=== PATIENT | male | born 1940 | race Caucasian/White ===

== ENCOUNTER 2020-03-11 07:07 | Observation (INO) ==
[2020-03-11] MEDS ORDERED: Aspirin 81 MG TAB.CHEW PO ONE (07:10)
[2020-03-11 07:45] LABS: INR 1.3; Prothrombin Time 14.8 Seconds (9.4-12.1)
[2020-03-11] MEDS ORDERED: Isovue-370 500 ML BOTTLE IVP ONE (07:57)
[2020-03-11 08:01] LABS: BUN/Creatinine Ratio 16 (6-26); Blood Urea Nitrogen 21 mg/dL (8-23); Calcium 9.2 mg/dL (8.6-10.3); Carbon Dioxide 24 mEq/L (23-29); Chloride 104 mEq/L (98-107); Glucose 121 mg/dL (70-105); Osmolality,Calculated 288 (280-300); Potassium 4.2 mEq/L (3.5-5.1); Sodium 137 mEq/L (136-145); eGFR For African Americans > 60 (> 60); eGFR For Non-African Americans 52 (> 60)
[2020-03-11 08:02] LABS: Troponin I < 0.03 ng/mL (< 0.04)
[2020-03-11 08:13] LABS: Basophils % 0.6 %; Eosinophils # 0.2 K/mcL (0.0-0.6); Eosinophils % 2.4 %; Hematocrit 40.9 % (37.5-50.1); Hemoglobin 13.4 g/dL (12.9-16.9); Immature Granulocytes % 0.3 % (0-4); Lymphocytes # 1.3 K/mcL (0.6-4.6); Lymphocytes % 21.2 %; Mean Corpuscular HGB Conc 32.8 g/dL (31.6-35.5); Mean Corpuscular Hemoglobin 33.3 pg (28.0-33.3); Mean Corpuscular Volume 101.7 fL (83.0-100.0); Mean Platelet Volume 10.9 fL (9.4-12.4); Monocytes # 0.6 K/mcL (0.0-1.3); Monocytes % 9.3 %; Neutrophils # 4.2 K/mcL (1.6-8.9); Platelet Count 146 K/mcL (140-400); Red Blood Count 4.02 M/mcL (4.19-5.50); Red Cell Distribution Width 12.1 % (11.5-14.5); Segmented Neutrophils % 66.2 %; White Blood Count 6.3 K/mcL (4.3-11.1)
[2020-03-11] MEDS ORDERED: Ondansetron 4 MG/2 ML VIAL IVP PRN (10:52)
[2020-03-11] MEDS ORDERED: Naloxone 0.4 MG/ML INJ IVP PRN (10:52)
[2020-03-11] MEDS: Metoprolol XL (24 HR) Succ 25 MG TAB.ER.24H PO SCH (16:17)
[2020-03-11] MEDS: Magnesium Oxide 400 MG TABLET PO SCH (16:17)
[2020-03-11] MEDS: Spironolactone 25 MG TABLET PO SCH (16:17)
[2020-03-11] MEDS: Ringers Solution, Lactated 1,000 ML IVC SCH (16:18)
[2020-03-11] MEDS ORDERED: DOFETILIDE 500 MCG PO SCH (21:00)
[2020-03-11] MEDS: Apixaban 5 MG TABLET PO SCH (21:20)
[2020-03-11 22:50] LABS: Bilirubin,Urine Negative (Negative); Blood,Urine Negative (Negative); Clarity,Urine Cloudy (Clear); Color,Urine Yellow (Yellow); Glucose,Urine (UA) Normal (Normal); Ketones,Urine Negative (Negative); Leukocyte Esterase,Urine Small (Negative); Nitrite,Urine Negative (Negative); PH,Urine 6.5 pH Units (5.0-8.0); Protein,Urine Negative (Neg-Trace); Specific Gravity,Urine > 1.030 (1.010-1.025); Urobilinogen,Urine Normal (Normal)
[2020-03-11 22:54] LABS: Hyaline Casts,Urine None Seen per lpf (None-Few); RBC,Urine 0-3 per hpf (0-3); Squamous Epithelial Cell,Urine Few per lpf (None-Few); WBC,Urine 15-30 per hpf (0-3)
[2020-03-11 23:13] LABS: Bacteria,Urine Moderate per hpf (None-Few)
[2020-03-12 03:11] LABS: Basophils % 0.5 %; Eosinophils # 0.1 K/mcL (0.0-0.6); Eosinophils % 1.8 %; Hematocrit 39.7 % (37.5-50.1); Hemoglobin 13.1 g/dL (12.9-16.9); Immature Granulocytes % 0.3 % (0-4); Lymphocytes # 1.7 K/mcL (0.6-4.6); Lymphocytes % 22.6 %; Mean Corpuscular Hemoglobin 33.8 pg (28.0-33.3); Mean Corpuscular Volume 102.3 fL (83.0-100.0); Mean Platelet Volume 10.8 fL (9.4-12.4); Monocytes # 0.7 K/mcL (0.0-1.3); Neutrophils # 5.1 K/mcL (1.6-8.9); Platelet Count 155 K/mcL (140-400); Red Blood Count 3.88 M/mcL (4.19-5.50); Red Cell Distribution Width 12.4 % (11.5-14.5); Segmented Neutrophils % 65.8 %; White Blood Count 7.7 K/mcL (4.3-11.1)
[2020-03-12 03:24] LABS: INR 1.4; Prothrombin Time 15.4 Seconds (9.4-12.1)
[2020-03-12 03:36] LABS: Alanine Aminotransferase 23 Units/L (7-52); Albumin 3.7 g/dL (3.5-5.7); Albumin/Globulin Ratio 1.8 (1.1-2.2); Alkaline Phosphatase 95 Units/L (34-104); Aspartate Amino Transferase 17 Units/L (13-39); BUN/Creatinine Ratio 15 (6-26); Bilirubin,Total 0.7 mg/dL (0.3-1.0); Blood Urea Nitrogen 18 mg/dL (8-23); Calcium 8.8 mg/dL (8.6-10.3); Carbon Dioxide 23 mEq/L (23-29); Chloride 107 mEq/L (98-107); Chol/HDL Ratio 3.1 (0-4.9); Cholesterol 113 mg/dL (< 200); Globulin 2.1 g/dL (2.4-3.5); Glucose 79 mg/dL (70-105); HDL Cholesterol 36 mg/dL (40-59); LDL Cholesterol,Calculated 67 mg/dL (0-99); Osmolality,Calculated 287 (280-300); Phosphorous 3.3 mg/dL (2.7-4.5); Potassium 4.3 mEq/L (3.5-5.1); Sodium 138 mEq/L (136-145); Total Protein 5.8 g/dL (6.4-8.9); Triglycerides 49 mg/dL (< 150); eGFR For African Americans > 60 (> 60); eGFR For Non-African Americans 58 (> 60)
[2020-03-12] MEDS: Ringers Solution, Lactated 1,000 ML IVC SCH (05:42)
[2020-03-12] MEDS ORDERED: Aspirin Enteric Coated 81 MG Tablet PO SCH (09:00)
[2020-03-12] MEDS: Apixaban 5 MG TABLET PO SCH ×2 (12:27→20:14)
[2020-03-12] MEDS: lisinopriL 5 MG TABLET PO SCH (12:27)
[2020-03-12] MEDS: Furosemide 20 MG TABLET PO SCH (12:27)
[2020-03-12] MEDS: *HR* Amiodarone 200 MG TABLET PO SCH (12:28)
[2020-03-12] MEDS: cefTRIAXone 1,000 MG in Water for inj. (sterile) 10 ML IVP SCH (12:32)
[2020-03-12] MEDS: Magnesium Oxide 400 MG TABLET PO SCH (17:50)
[2020-03-12] MEDS: Spironolactone 25 MG TABLET PO SCH (17:50)
[2020-03-12] MEDS: Metoprolol XL (24 HR) Succ 25 MG TAB.ER.24H PO SCH (17:51)
[2020-03-13 08:16] LABS: Basophils # 0.1 K/mcL (0.0-0.2); Basophils % 0.7 %; Eosinophils # 0.2 K/mcL (0.0-0.6); Eosinophils % 2.5 %; Hematocrit 42.9 % (37.5-50.1); Hemoglobin 14.1 g/dL (12.9-16.9); Immature Granulocytes % 0.3 % (0-4); Lymphocytes # 1.6 K/mcL (0.6-4.6); Lymphocytes % 22.3 %; Mean Corpuscular HGB Conc 32.9 g/dL (31.6-35.5); Mean Corpuscular Hemoglobin 33.3 pg (28.0-33.3); Mean Corpuscular Volume 101.2 fL (83.0-100.0); Mean Platelet Volume 10.6 fL (9.4-12.4); Monocytes # 0.6 K/mcL (0.0-1.3); Monocytes % 8.6 %; Neutrophils # 4.8 K/mcL (1.6-8.9); Platelet Count 171 K/mcL (140-400); Red Blood Count 4.24 M/mcL (4.19-5.50); Red Cell Distribution Width 12.4 % (11.5-14.5); Segmented Neutrophils % 65.6 %; White Blood Count 7.3 K/mcL (4.3-11.1)
[2020-03-13] MEDS: lisinopriL 5 MG TABLET PO SCH (08:21)
[2020-03-13] MEDS: cefTRIAXone 1,000 MG in Water for inj. (sterile) 10 ML IVP SCH (08:22)
[2020-03-13] MEDS: *HR* Amiodarone 200 MG TABLET PO SCH (08:22)
[2020-03-13] MEDS: Apixaban 5 MG TABLET PO SCH (08:22)
[2020-03-13] MEDS: Furosemide 20 MG TABLET PO SCH (08:22)
[2020-03-13 08:38] LABS: BUN/Creatinine Ratio 16 (6-26); Blood Urea Nitrogen 22 mg/dL (8-23); Calcium 9.3 mg/dL (8.6-10.3); Carbon Dioxide 27 mEq/L (23-29); Chloride 101 mEq/L (98-107); Glucose 90 mg/dL (70-105); Osmolality,Calculated 291 (280-300); Potassium 4.3 mEq/L (3.5-5.1); Sodium 139 mEq/L (136-145); eGFR For African Americans > 60 (> 60); eGFR For Non-African Americans 50 (> 60)
[2020-03-13 10:23] VITALS: BP 107/64
== END 2020-03-13 11:57 | disposition home or self-care (01) ==
LOC: EMEROOARM 07:07 → 3BNU 07:07
PROVIDERS: ADMIT Internal Medicine; ATTEND Internal Medicine